=== PATIENT | female | born 1980 | race Caucasian/White ===

== ENCOUNTER 2022-04-15 10:02 | Emergency (ER) | payer OTHER, SELFPAY ==
--- NOTE | 2022-04-15 10:38 | ED.URI ---
HPI - URI/Sore Throat General Chief Complaint: Upper Respiratory Infection Stated Complaint: congestion Time Seen by Provider: 04/15/22 10:38 Source: patient Mode of arrival: ambulatory Limitations: no limitations History of Present Illness HPI Narrative: 2-year-old female presents with complaint nasal congestion, mild cough since yesterday. States that her son tested positive on home test for COVID. She has not yet tested herself. Afebrile. No chest pain or shortness of breath. Denies nausea vomiting diarrhea. Patient is well-appearing. All systems reviewed and negative except as noted above. Related Data Home Medications Medication Instructions Recorded Confirmed sertraline 100 mg tablet 100 mg PO DAILY 04/15/22 04/15/22 Allergies Allergy/AdvReac Type Severity Reaction Status Date / Time No Known Allergies Allergy Verified 04/15/22 10:38 Review of Systems Review of Systems: CONSTITUTIONAL: Denies fever, chills, or sweats. EYES: Denies visual changes, redness, or discharge. ENT: Reports rhinorrhea, congestion. Denies sore throat, or otalgia. CARDIOVASCULAR: Denies chest pain, palpitations, or edema. RESPIRATORY: reports cough. Denies dyspnea. GASTROINTESTINAL: Denies abdominal pain, nausea, vomiting, or diarrhea. GENITOURINARY: Denies dysuria or hematuria. SKIN: Denies rash or itching. MUSCULOSKELETAL: Denies back pain, joint pain, or myalgia. NEUROLOGIC: Denies headache, numbness, or weakness. PSYCHIATRIC: Denies anxiety or depression. All other systems reviewed are negative, except as documented in HPI. PMFSH Comments At time of signature, agree with nursing past medical, surgical, social and family history. There is no relevant family history pertinent to the presenting complaint. Exam Narrative: GENERAL: This is a well-nourished, well-developed patient, in no apparent distress. HEAD: normocephalic, atraumatic. EYES: PERRL. Sclera clear/white. Vision is grossly intact. EARS: External ears normal, auditory canals clear and without drainage, TMs normal without perforation. Hearing grossly intact. NOSE: External nose normal with clear nasal drainage. THROAT: Mucous membranes moist, posterior pharynx clear. NECK: Neck supple, non-tender without lymphadenopathy, masses or thyromegaly. CARDIOVASCULAR: Regular rate and rhythm without murmurs, gallops, or rubs. RESPIRATORY: Clear to auscultation. Breath sounds equal bilaterally. No wheezes, rales, or rhonchi. SKIN: warm, Dry, intact with no suspicious lesions or rash, good texture and turgor. NEURO: awake, alert, and oriented to person, place and time. There were no obvious focal neurologic abnormalities. EXTREMITIES: No joint tenderness, effusion, or edema noted. Course Course Level of Care: Express Care Visit Vital Signs Vital signs: Vital Signs Temperature 36.9 C 04/15/22 10:47 Pulse Rate 88 04/15/22 10:47 Respiratory Rate 18 04/15/22 10:47 Blood Pressure 152/83 H 04/15/22 10:47 Pulse Oximetry 98 04/15/22 10:47 Oxygen Delivery Room Air 04/15/22 10:47 Temperature 36.9 C 04/15/22 10:47 Pulse Rate 88 04/15/22 10:47 Respiratory Rate 18 04/15/22 10:47 Blood Pressure 152/83 H 04/15/22 10:47 Pulse Oximetry 98 04/15/22 10:47 Oxygen Delivery Room Air 04/15/22 10:47 Reviewed MDM - URI/Sore Throat MDM Narrative Medical decision making narrative: Patient is aware of diagnosis, understands and agrees to treatment plan. Anticipatory guidance given. Patient agrees to follow-up as directed and is aware of reasons to seek care at the emergency department. Portions of this record may have been created with voice recognition software Differential Diagnosis Differential diagnosis: Likely upper respiratory infection, sinusitis, viral infection and influenza Discharge Plan Discharge Clinical Impression: COVID-19 Patient Disposition: Home, Self-Care Condition: Stable Instructions: COVID-19 (
[2022-04-15 10:47] VITALS: BP 152/83; PULSE 88; RESP 18; TEMP 36.9; O2SAT 98
== END 2022-04-15 11:15 | disposition home or self-care (01) ==
PROVIDERS: Emergency Provider Nurse Practitioner Family
DX: U07.1 COVID-19 (principal)
CPT/HCPCS: 87426; 99213; C9803; G0463

== ENCOUNTER 2022-09-23 14:48 | Emergency (ER) | payer OTHER, SELFPAY ==
[2022-09-23 14:55] VITALS: BP 132/80; PULSE 79; RESP 16; TEMP 37.1; O2SAT 100
--- NOTE | 2022-09-23 15:10 | ED.EAR ---
HPI - Ear Problem General Chief complaint: Ear Stated complaint: Rt Ear Irritation Time Seen by Provider: 09/23/22 15:04 Source: patient and RN notes reviewed Mode of arrival: ambulatory Limitations: no limitations History of Present Illness HPI Narrative: Patient presents today complaining of a whooshing sound and muffling in her right ear since this morning. Denies pain or drainage. She has tried flushing her ear with alcohol and peroxide as well as using ear drops, Sudafed, chewing gum and attempting to pop her ear. She also takes Zyrtec daily for her allergies. Denies any recent illness or exposure to loud noises. Related Data Home Medications Medication Instructions Recorded Confirmed sertraline 100 mg tablet 100 mg PO DAILY 04/15/22 09/23/22 atomoxetine 40 mg capsule 40 mg PO DAILY 09/23/22 09/23/22 cetirizine 10 mg tablet (Zyrtec) 10 mg PO DAILY 09/23/22 09/23/22 levonorgestrel 21 mcg/24 hours (8 See Rx Instructions .Route .COMPLEX 09/23/22 09/23/22 yrs) 52 mg intrauterine device (Mirena) Allergies Allergy/AdvReac Type Severity Reaction Status Date / Time No Known Allergies Allergy Verified 09/23/22 14:50 Review of Systems Review of Systems: CONSTITUTIONAL: Denies body aches, fever, chills, or sweats. EYES: Denies visual changes, redness, or discharge. ENT: Denies rhinorrhea, congestion, sore throat, or otalgia.+ right ear muffling and whooshing CARDIOVASCULAR: Denies chest pain, palpitations, or edema. RESPIRATORY: Denies cough or dyspnea. GASTROINTESTINAL: Denies abdominal pain, nausea, vomiting, or diarrhea. GENITOURINARY: Denies dysuria or hematuria. SKIN: Denies rash, itching, or wounds. MUSCULOSKELETAL: Denies back pain, joint pain, or myalgia. NEUROLOGIC: Denies headache, numbness, tingling, or weakness. PSYCH: Denies depression or anxiety. PMFSH Comments At time of signature, I have reviewed and agree with nursing past medical, surgical, social and family history unless otherwise noted. Please see nursing chart for further information. There is no relevant family history pertinent to the presenting complaint Exam Narrative: GENERAL: Well-appearing, well-nourished, and in no acute distress. HEAD: Normocephalic, atraumatic. EYES: EOMI. No redness or drainage. Conjunctivae normal. ENT: Mucous membranes pink and moist. Nares clear. No rhinorrhea. Left TM normal. Right TM with mild serous effusion without evidence of bacterial infection. NECK: Normal AROM. Supple. No lymphadenopathy. CHEST: No respiratory distress. EXTREMITIES: Normal range of motion. No edema. SKIN: Warm, dry, no rash. Capillary refill normal. Normal skin turgor. NEURO: No focal deficits. Alert and oriented x3. Gait steady. PSYCH: Normal affect. No signs of depression or anxiety. Course Course Level of Care: Express Care Visit Vital Signs Vital signs: Vital Signs Temperature 98.8 F 09/23/22 14:55 Pulse Rate 79 09/23/22 14:55 Respiratory Rate 16 09/23/22 14:55 Blood Pressure 132/80 09/23/22 14:55 Pulse Oximetry 100 09/23/22 14:55 Oxygen Delivery Room Air 09/23/22 14:55 Temperature 98.8 F 09/23/22 14:55 Pulse Rate 79 09/23/22 14:55 Respiratory Rate 16 09/23/22 14:55 Blood Pressure 132/80 09/23/22 14:55 Pulse Oximetry 100 09/23/22 14:55 Oxygen Delivery Room Air 09/23/22 14:55 Reviewed. Pt has been instructed to follow up with her PCP regarding her elevated blood pressure today. Medical Decision Making MDM Narrative Medical decision making narrative: Patient's exam shows mild right serous effusion, which could be causing patient's symptoms. Suggested continuing Sudafed and adding Flonase. Suggest following up with PCP or ENT in 1 week if symptoms are not anticipatory guidance given. No prescription medications indicated at this time. Differential Diagnosis Differential Diagnosis: Otitis media, otitis externa, ruptured TM, serous otitis, eusta
== END 2022-09-23 15:16 | disposition home or self-care (01) ==
PROVIDERS: Emergency Provider Nurse Practitioner
DX: H65.01 Acute serous otitis media, right ear (principal); F41.9 Anxiety disorder, unspecified; F32.A Depression, unspecified; F90.9 Attention-deficit hyperactivity disorder, unspecified type; Z86.16 Personal history of COVID-19
CPT/HCPCS: 99211; G0463

== ENCOUNTER 2022-12-19 12:05 | Emergency (ER) | payer OTHER, SELFPAY ==
[2022-12-19 12:20] VITALS: BP 129/77; PULSE 83; RESP 18; TEMP 36.3; O2SAT 97
--- NOTE | 2022-12-19 12:20 | ED.URI ---
HPI - URI/Sore Throat General Chief Complaint: Upper Respiratory Infection Stated Complaint: Cough Time Seen by Provider: 12/19/22 12:20 Source: patient Mode of arrival: ambulatory Limitations: no limitations History of Present Illness HPI Narrative: Patient is a 42-year-old female that presents with cough, congestion and headache for over 1 week. Patient has been taking [id number] Mucinex, Flonase, Claritin and an albuterol inhaler with [id number] relief. Denies any fever, chills, nausea, vomiting, diarrhea or ear pain Related Data Home Medications Medication Instructions Recorded Confirmed sertraline 100 mg tablet 100 mg PO DAILY 04/15/22 12/19/22 atomoxetine 40 mg capsule 40 mg PO DAILY 09/23/22 12/19/22 cetirizine 10 mg tablet (Zyrtec) 10 mg PO DAILY 09/23/22 12/19/22 levonorgestrel 21 mcg/24 hours (8 See Rx Instructions .Route .COMPLEX 09/23/22 12/19/22 yrs) 52 mg intrauterine device (Mirena) Allergies Allergy/AdvReac Type Severity Reaction Status Date / Time No Known Allergies Allergy Verified 12/19/22 12:50 Review of Systems Review of Systems: All systems reviewed & are unremarkable except as noted in HPI and below Constitutional: Constitutional: Denies body ache(s), Denies chills, Denies fatigue, Denies fever(s), Reports headache(s), Denies malaise and Denies weakness Eyes: Eyes: Denies blurry vision, Denies itchy eyes and Denies loss of vision ENT: Denies otalgia, Denies headache(s), Reports nasal congestion, Denies sinus pain and Denies sore throat Cardiovascular: Cardiovascular: Denies chest pain, Denies irregular heart rhythm and Denies dyspnea Respiratory: Respiratory: Reports cough and Denies dyspnea Gastrointestinal: Gastrointestinal: Denies abdominal pain, Denies diarrhea, Denies nausea and Denies vomiting Musculoskeletal: Musculoskeletal: Denies back pain, Denies myalgias and Denies arthralgias Integumentary/Breasts: Skin/Breast: Denies pruritus and Denies rash Neurologic: Denies headache(s), Denies loss of vision and Denies weakness Psychiatric: Psychiatric: Reports no additional psychiatric complaints Endocrine: Endocrine: Denies fatigue Allergic/Immunologic: Allergic/Immunologic: Denies itchy eyes PMFSH Comments At time of signature, agree with nursing past medical, surgical, social and family history. There is no relevant family history pertinent to the presenting complaint. Exam Const: General: cooperative, healthy appearing, comfortable, no acute distress and well nourished Nutritional Appearance: well nourished Orientation/consciousness: patient oriented x3 Limitations: no limitations HENMT: Head: normal to inspection, normocephalic and atraumatic Ears: hearing grossly normal bilaterally, external ears normal, TM's normal bilaterally, EAC's normal and no periauricular adenopathy Face/Nose/Sinus: Normal external nose present, Abnormal mucous membranes and turbinates present erythematous bilateral and diffuse, normal facial exam, sinuses nontender and face symmetric Face and sinus: normal facial exam, sinuses nontender and face symmetric Mouth: Yes Normal oral and palatal mucosa present, Yes lip normal, Yes tongue normal, Yes Normal salivary glands and ducts present, Yes oropharynx normal and Yes moist mucous membranes Teeth and gingiva: dentition normal Throat: posterior oropharynx normal, tonsils normal and uvula midline Eyes: General: appearance normal, both eyes and all related structures Alignment and Position: alignment normal and position normal Periorbital: periorbital findings normal Eyelids: eyelids normal Pupils: Equal, round and reactive pupils present Neck: Neck: normal visual inspection, full ROM, no lymphadenopathy and supple Chest: Chest palpation & inspection: normal inspection of the chest and normal palpation of entire chest wall Resp: Effort & Inspection: normal respiratory effort and able to speak in complete sentences Auscultation:
== END 2022-12-19 12:38 | disposition home or self-care (01) ==
PROVIDERS: Emergency Provider Nurse Practitioner Family
DX: J06.9 Acute upper respiratory infection, unspecified (principal); F41.9 Anxiety disorder, unspecified; F32.A Depression, unspecified; F90.9 Attention-deficit hyperactivity disorder, unspecified type; Z86.16 Personal history of COVID-19
CPT/HCPCS: 99213; G0463

== ENCOUNTER 2023-01-01 16:54 | Emergency (ER) | payer OTHER, SELFPAY ==
--- NOTE | ~2023-01-01 | XR_ITS ---
EXAMINATION: XR chest 2V DATE: 01/01/2023 17:18 INDICATION: Cough. TECHNIQUE: Frontal and lateral views of the chest were obtained. COMPARISON: None. FINDINGS: There is mild atelectasis in left lower lung zone. No pleural effusion or pneumothorax. The heart size is normal. IMPRESSION: 1. Mild atelectasis in left lower lung zone. Reviewed, dictated and finalized at location E.
--- NOTE | 2023-01-01 17:05 | ED.URI ---
HPI - URI/Sore Throat General Chief Complaint: Upper Respiratory Infection Stated Complaint: cough Time Seen by Provider: 01/01/23 17:08 Source: patient Mode of arrival: ambulatory Limitations: no limitations History of Present Illness HPI Narrative: Arielle is a 42-year-old female patient presenting to the clinic today with complaints of a nonproductive cough and head congestion times 3 weeks. She was seen here 2 weeks ago and prescribed prednisone, albuterol inhaler, azithromycin, and Tessalon Perles. States that her symptoms do not seem to be improving. She denies any known fever or chills. No known exposure to anyone with COVID, flu, or strep. Had been tested 2 weeks ago for COVID and was negative at that time. MD elicited complaint: cough, nasal congestion and sinus pain Related Data Home Medications Medication Instructions Recorded Confirmed sertraline 100 mg tablet 100 mg PO DAILY 04/15/22 12/19/22 atomoxetine 40 mg capsule 40 mg PO DAILY 09/23/22 12/19/22 cetirizine 10 mg tablet (Zyrtec) 10 mg PO DAILY 09/23/22 12/19/22 levonorgestrel 21 mcg/24 hours (8 See Rx Instructions .Route .COMPLEX 09/23/22 12/19/22 yrs) 52 mg intrauterine device (Mirena) Allergies Allergy/AdvReac Type Severity Reaction Status Date / Time No Known Allergies Allergy Verified 12/19/22 12:50 Review of Systems Review of Systems: Pertinent positives per HPI. Patient denies any fever, chills, rash, headache, visual changes, dizziness, shortness of breath, chest pain, palpitations, nausea, vomiting, diarrhea, constipation, abdominal pain, or any urinary issues. PMFSH Comments At the time of my signature, I reviewed and agree with the nursing past medical, surgical, social, and family history. There is no relevant family history pertinent to the patient complaint. Exam Narrative: General: Well-developed, well nourished, in no apparent distress Head: Normocephalic, atraumatic Eyes: Pupils equally round and reactive to light bilaterally, EOM intact, sclera and conjunctive clear, no discharge, lids normal Ears: TMs intact and clear, ear canals clear, no drainage, grossly hearing normal. Nose: Nares patent, clear nasal discharge, severe inflammation to the right near, no sinus tenderness. Mouth: Oral pharynx without lesions or masses, good dentition, MMM. Postnasal drip Neck: Supple, trachea midline, no enlargement of anterior or posterior cervical nodes, no thyroid masses or goiter palpable. Cardio: Regular rate and rhythm, s1 and s2 normal, no murmur appreciated. Resp: Coarse lung sounds, no rhonchi, rales, wheezing or rubs Course Course Emergency Course: Portions of this record may have been created with voice recognition software. Level of Care: Express Care Visit Vital Signs Vital signs: Vital signs reviewed MDM - URI/Sore Throat MDM Narrative Medical decision making narrative: At the time of visit patient is resting on the exam table. COVID testing was performed. Chest x-ray was performed. DuoNeb HHN tx was given. Chest x-ray is negative for any sign pneumonia but does have some mild atelectasis in left lower lung zone. DuoNeb treatment did improve patient's coughing while in the clinic today. COVID test was negative. I suspect patient has bronchitis. Will increase her Tessalon Perles dosing and give her a taper dose of prednisone. Supportive measures were discussed with the patient and she voiced understanding discharge instructions and agrees to treatment plan. Differential Diagnosis Differential diagnosis: Likely upper respiratory infection, otitis media, sinusitis, viral infection, bronchitis, influenza, pharyngitis and other (Covid) Imaging Data Radiologist's impression: [address] [address] XRay Report Signed Patient: Penelope Rice : 1980 MR#: [id number] Age/Sex: 42 / F Acct:[id number] Loc: [facility]? ? ADM D
[2023-01-01 17:06] VITALS: BP 137/86; PULSE 90; RESP 18; TEMP 36.4; O2SAT 100
[2023-01-01] MEDS: ALBUTEROL SULFATE NEB 2.5 MG/3 ML INH INHALATION (17:21)
[2023-01-01] MEDS: IPRATROPIUM BR 0.02% INH SOLN 0.5 MG/2.5 ML VIAL INHALATION (17:22)
== END 2023-01-01 18:04 | disposition home or self-care (01) ==
PROVIDERS: Emergency Provider Nurse Practitioner Family
DX: J40 Bronchitis, not specified as acute or chronic (principal); J98.11 Atelectasis; Z20.822 Contact with and (suspected) exposure to COVID-19
CPT/HCPCS: 71046; 87426; 94640; 99213; C9803; G0463

== ENCOUNTER 2023-04-21 11:49 | Emergency (ER) | payer OTHER, SELFPAY ==
[2023-04-21 12:01] VITALS: BP 127/77; PULSE 84; RESP 18; TEMP 36.6; O2SAT 99
--- NOTE | 2023-04-21 12:53 | ED.URI ---
HPI - URI/Sore Throat General Chief Complaint: Upper Respiratory Infection Stated Complaint: Cough Time Seen by Provider: 04/21/23 12:42 Source: patient and RN notes reviewed Mode of arrival: ambulatory Limitations: no limitations History of Present Illness HPI Narrative: Patient presents today complaining of a 2 day history of headache, sore throat, cough, congestion, fatigue, postnasal drip, and right ear pain. Denies shortness of breath or fever. States her daughter was diagnosed with influenza a 3 days ago. Patient has been using decongestants and Benadryl with some relief. Related Data Home Medications Medication Instructions Recorded Confirmed sertraline 100 mg tablet 100 mg PO DAILY 04/15/22 04/21/23 atomoxetine 40 mg capsule 40 mg PO DAILY 09/23/22 04/21/23 cetirizine 10 mg tablet (Zyrtec) 10 mg PO DAILY 09/23/22 04/21/23 levonorgestrel 21 mcg/24 hours (8 See Rx Instructions .Route .COMPLEX 09/23/22 04/21/23 yrs) 52 mg intrauterine device (Mirena) dextroamphetamine-amphetamine ER 30 mg PO DAILY 04/21/23 04/21/23 30 mg 24hr capsule,extend release ipratropium 0.5 mg-albuterol 3 mg 3 ml inhalation PRN PRN Shortness 04/21/23 04/21/23 (2.5 mg base)/3 mL nebulization Of Breath Or Wheezing soln Allergies Allergy/AdvReac Type Severity Reaction Status Date / Time No Known Allergies Allergy Verified 04/21/23 12:20 Review of Systems Review of Systems: CONSTITUTIONAL: Denies body aches, fever, chills, or sweats.+ fatigue EYES: Denies visual changes, redness, or discharge. ENT: Denies rhinorrhea. + congestion, sore throat, postnasal drip, right ear pain CARDIOVASCULAR: Denies chest pain, palpitations, or edema. RESPIRATORY: Denies dyspnea.+ cough GASTROINTESTINAL: Denies abdominal pain, nausea, vomiting, or diarrhea. GENITOURINARY: Denies dysuria or hematuria. SKIN: Denies rash, itching, or wounds. MUSCULOSKELETAL: Denies back pain, joint pain, or myalgia. NEUROLOGIC: Denies numbness, tingling, or weakness.+ headache PSYCH: Denies depression or anxiety. PMFSH Comments At time of signature, I have reviewed and agree with nursing past medical, surgical, social and family history unless otherwise noted. Please see nursing chart for further information. There is no relevant family history pertinent to the presenting complaint Exam Narrative: GENERAL: Well-appearing, well-nourished, and in no acute distress. HEAD: Normocephalic, atraumatic. EYES: EOMI. No redness or drainage. Conjunctivae normal. ENT: Mucous membranes pink and moist. Nares mildly congested. No rhinorrhea. TMs normal bilaterally. Throat normal with moderate amount of white postnasal drainage. Uvula midline. NECK: Normal AROM. Supple. No lymphadenopathy. CHEST: No respiratory distress. Clear to auscultation. HEART: Regular rate and rhythm. No murmur appreciated. EXTREMITIES: Normal range of motion. No edema. SKIN: Warm, dry, no rash. Capillary refill normal. Normal skin turgor. NEURO: No focal deficits. Alert and oriented x3. Gait steady. PSYCH: Normal affect. No signs of depression or anxiety. Course Course Level of Care: Express Care Visit Vital Signs Vital signs: Vital Signs Temperature 97.8 F 04/21/23 12:01 Pulse Rate 84 04/21/23 12:01 Respiratory Rate 18 04/21/23 12:01 Blood Pressure 127/77 04/21/23 12:01 Pulse Oximetry 99 04/21/23 12:01 Oxygen Delivery Room Air 04/21/23 12:01 Temperature 97.8 F 04/21/23 12:01 Pulse Rate 84 04/21/23 12:01 Respiratory Rate 18 04/21/23 12:01 Blood Pressure 127/77 04/21/23 12:01 Pulse Oximetry 99 04/21/23 12:01 Oxygen Delivery Room Air 04/21/23 12:01 Reviewed MDM - URI/Sore Throat MDM Narrative Medical decision making narrative: All testing negative. Symptoms likely viral in etiology. No prescription medications indicated at this time. Anticipatory guidance given. Differential Diagnosis Differential diagnosis: Likely up
== END 2023-04-21 12:58 | disposition home or self-care (01) ==
PROVIDERS: Emergency Provider Nurse Practitioner
DX: J06.9 Acute upper respiratory infection, unspecified (principal); Z20.822 Contact with and (suspected) exposure to COVID-19; Z86.16 Personal history of COVID-19; F90.9 Attention-deficit hyperactivity disorder, unspecified type; F41.9 Anxiety disorder, unspecified; F32.A Depression, unspecified
CPT/HCPCS: 87081; 87426; 87804; 87880; 99213; C9803; G0463

== ENCOUNTER 2023-07-17 11:41 | Emergency (ER) | payer OTHER, SELFPAY ==
--- NOTE | 2023-07-17 11:49 | ED.DENTAL ---
HPI - Dental/Oral General Chief complaint: Unspecified Stated complaint: Tongue Numbness Time Seen by Provider: 07/17/23 11:49 Source: patient Mode of arrival: ambulatory Limitations: no limitations History of Present Illness HPI Narrative: Penelope is a 43-year-old female patient presenting to the clinic today with complaints of tongue numbness since she had surgery on Wednesday of this week. She reports she had cubital carpal tunnel surgery on the right arm on Wednesday and they put her under general anesthesia for this. States when she woke up from the anesthesia she had tongue numbness. Reported this to anesthesia and the resident surgeon. They placed her on vitamin B12. 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 States she is having paresthesia to the tongue, no taste, and no temperature sensation. She is concerned that the vitamin B12 is not going to help as she was doing some research and she discussed use of dexamethasone with the provider at that time and they declined to give it to her at that time as they were concerned it would cause her to the developed diabetes or a stroke. Has a follow-up appointment with her surgeon on Wednesday. Related Data Home Medications Medication Instructions Recorded Confirmed sertraline 100 mg tablet 100 mg PO DAILY 04/15/22 07/17/23 cetirizine 10 mg tablet (Zyrtec) 10 mg PO DAILY 09/23/22 04/21/23 levonorgestrel 21 mcg/24 hours (8 See Rx Instructions .Route .COMPLEX 09/23/22 07/17/23 yrs) 52 mg intrauterine device (Mirena) dextroamphetamine-amphetamine ER 30 mg PO DAILY 04/21/23 07/17/23 30 mg 24hr capsule,extend release fluticasone propionate 50 intranasal 07/17/23 mcg/actuation nasal spray,suspension tretinoin 0.025 % topical cream 1 applic topical HS 07/17/23 07/17/23 (Retin-A) Allergies Allergy/AdvReac Type Severity Reaction Status Date / Time No Known Allergies Allergy Verified 07/17/23 11:53 Review of Systems Review of Systems: Pertinent positives per HPI. Patient denies any fever, chills, rash, headache, visual changes, dizziness, cough, shortness of breath, chest pain, palpitations, nausea, vomiting, diarrhea, constipation, abdominal pain, or any urinary issues. PMFSH Comments At the time of my signature, I reviewed and agree with the nursing past medical, surgical, social, and family history. There is no relevant family history pertinent to the patient complaint. Exam Narrative: General: Well-developed, well nourished, in no apparent distress Head: Normocephalic, atraumatic Eyes: Pupils equally round and reactive to light bilaterally, EOM intact, sclera and conjunctive clear, no discharge, lids normal Ears: TMs intact and clear, ear canals clear, no drainage, grossly hearing normal. Nose: Nares patent, no discharge, no inflammation, no sinus tenderness. Mouth: Oral pharynx without lesions or masses, good dentition, MMM. Alterations with sensation to the tongue Neck: Supple, trachea midline, no enlargement of anterior or posterior cervical nodes, no thyroid masses or goiter palpable. Cardio: Regular rate and rhythm, s1 and s2 normal, no murmur appreciated. Resp: Clear to auscultation bilaterally, no rhonchi, rales, wheezing or rubs Course Course Emergency Course: Portions of this record may have been created with voice recognition software. Level of Care: Express Care Visit Vital Signs Vital signs: Vital signs reviewed MDM - Dental/Oral MDM Narrative Medical decision making narrative: At the time of visit patient is resting comfortably on the exam table. Patient appears to be nontoxic. Plan: Will send in a dexamethasone 10 day pack. Discussed follow-up with a oral maxillofacial /plastic surgeon. Supportive measures were discussed with the patient and they voiced understanding discharge instructions and agrees to treatment plan. Return precautions reviewed Differential Diagnosis Differential diagnosis: Likely other
[2023-07-17 11:50] VITALS: BP 148/78; PULSE 78; RESP 18; TEMP 36.5; O2SAT 97
== END 2023-07-17 12:29 | disposition home or self-care (01) ==
PROVIDERS: Emergency Provider Nurse Practitioner Family
DX: K14.9 Disease of tongue, unspecified (principal); R20.2 Paresthesia of skin; F90.9 Attention-deficit hyperactivity disorder, unspecified type; F41.9 Anxiety disorder, unspecified; F32.A Depression, unspecified; Z86.16 Personal history of COVID-19
CPT/HCPCS: 99213; G0463